=== PATIENT | female | born 1940 | race Caucasian/White ===

== ENCOUNTER 2016-10-06 06:53 | Day surgery (SDC) | payer OTHER ==
[~2016-10-06] VITALS: Ht 167.6 cm; Wt 113.0 kg
[~2016-10-06 06:53] MED LIST: AMLODIPINE BESYL5 MG PO; APRESOLINE50 MG PO; ATORVASTATIN CA20 MG PO; BASAGLAR K100 UNIT/1 SC; BENADRYL25 MG PO; CARVEDILOL25 MG PO; COREG25 M1 PO; CRESTOR20 MG PO; DITROPAN5 MG PO; DOXAZOSIN MESYLA2 MG PO; ISOSORBIDE DINI30 MG PO; LANTUS 3 M100 UNITS1 SC; LASIX80 MG PO; LO-DOSE ASPIRIN81 M1 PO; NOVOLOG PE100 UNITS/ SC; RENA-VITE RX T1 EACH PO; RENVELA800 MG PO; ROCALTROL0.5 MCG PO; SENSIPAR30 MG PO; SYNTHROID200 MCG PO; SYNTHROID50 MCG PO; TRILIPIX135 MG PO; XANAX0.25 MG PO
[2016-10-06 07:42] LABS: POINT-OF-CARE METER ID UU13113696
[2016-10-06 09:08] LABS: METH RESISTANT S AUREUS PCR POSITIVE (NEGATIVE)
[2016-10-06 09:09] LABS: PROBE CHECK PASS
== END 2016-10-06 09:35 | disposition home or self-care (01) ==
LOC: CATH 06:53
PROVIDERS: Surgery
DX: T82.858A Stenosis of other vascular prosthetic devices, implants and grafts, initial encounter (principal); I12.0 Hypertensive chronic kidney disease with stage 5 chronic kidney disease or end stage renal disease; N18.6 End stage renal disease; Z99.2 Dependence on renal dialysis; E11.22 Type 2 diabetes mellitus with diabetic chronic kidney disease; Z79.4 Long term (current) use of insulin; Z79.899 Other long term (current) drug therapy
CPT/HCPCS: 82948; 87641; C1725; C1769; C1894; J1644; J2250; J3010